=== PATIENT | female | born 1970 | race Caucasian/White ===

== ENCOUNTER 2020-10-03 06:12 | Emergency (ER) | payer OTHER ==
[~2020-10-03] VITALS: Ht 162.6 cm; Wt 109.1 kg
[~2020-10-03 06:12] MED LIST: LORA0.5T PO
[2020-10-03 06:20] VITALS: BP 172/103
[2020-10-03] MEDS ORDERED: dexamethasone sod phosphate 10mg/ml inj IV STA (06:32)
[2020-10-03] MEDS ORDERED: clindamycin 600mg/D5W 50ml 50 ML IV ONE (06:35)
[2020-10-03] MEDS ORDERED: LIDOcaine 4% (40 mg/ml) topical solution 50ml TP ONE (06:35)
[2020-10-03] MEDS ORDERED: COROTSUS RIGHT EAR (07:37)
[2020-10-03] MEDS ORDERED: CLIN150C2 PO (07:38)
== END 2020-10-03 08:25 | disposition home or self-care (01) ==
LOC: ER 06:13
DX: H60.11 Cellulitis of right external ear (principal); Z88.0 Allergy status to penicillin; Z79.899 Other long term (current) drug therapy
CPT/HCPCS: 96365; 96375; 99284; J1100; 96366; J3490

== ENCOUNTER 2021-07-05 14:48 | Emergency (ER) | payer OTHER ==
[~2021-07-05] VITALS: Ht 165.1 cm; Wt 100.0 kg
[~2021-07-05 14:48] MED LIST changes: +COROTSUS RIGHT EAR; +ONDA4TAB6 PO
[2021-07-05 16:33] LABS: BASOPHILS % (AUTO) 0.7 % (0-1); EOSINOPHILS # (AUTO) 0.2 X10'3 (0-0.9); EOSINOPHILS % (AUTO) 3.5 % (0-6); HEMOGLOBIN 14.4 g/dl (12.0-16.0); LYMPHOCYTES # (AUTO) 2.7 X10'3 (1.1-4.8); LYMPHOCYTES % (AUTO) 44.2 % (21-51); MEAN CORPUSCULAR HEMOGLOBIN 29.7 PG (27.0-31.0); MEAN CORPUSCULAR HGB CONC 33.5 g/dL (33.0-36.5); MEAN CORPUSCULAR VOLUME 88.7 FL (78-98); MEAN PLATELET VOLUME 8.3 FL (7.4-10.4); MONOCYTES # (AUTO) 0.4 X10'3 (0-0.9); NEUTROPHILS # (AUTO) 2.8 X10'3 (1.8-7.7); NEUTROPHILS % (AUTO) 44.6 % (42-75); PLATELET COUNT 311 X10'3 (140-440); RED BLOOD COUNT 4.85 X10'6 (4.20-5.60); RED CELL DISTRIBUTION WIDTH 12.6 % (11.5-14.5); WHITE BLOOD COUNT 6.2 X10'3 (4.5-11.0)
[2021-07-05 16:49] LABS: ALANINE AMINOTRANSFERASE 45 U/L (12-78); ALBUMIN 4.3 G/DL (3.4-5.0); ALBUMIN/GLOBULIN RATIO 1.2 (1.1-1.5); ALKALINE PHOSPHATASE 80 IU/L (46-116); ANION GAP 6 (8-16); ASPARTATE AMINO TRANSFERASE 24 U/L (10-37); BILIRUBIN,TOTAL 0.3 MG/DL (0.1-1.0); BLOOD UREA NITROGEN 15 MG/DL (7-18); BUN/CREATININE RATIO 20.8 (6.6-38.0); C-REACTIVE PROTEIN 0.19 MG/DL (0.0-0.5); CALCIUM 9.2 MG/DL (8.5-10.1); CHLORIDE 106 MMOL/L (99-107); CREATININE 0.72 MG/DL (0.40-0.90); GLUCOSE 111 MG/DL (70-104); POTASSIUM 3.9 MMOL/L (3.5-5.1); SODIUM 140 MMOL/L (135-145); TOTAL CARBON DIOXIDE 27.7 MMOL/L (24-32); TOTAL PROTEIN 7.8 G/DL (6.4-8.2); eGFR 85 ML/MIN
[2021-07-05] MEDS ORDERED: OXYC-658 PO (19:16)
[2021-07-05 19:22] VITALS: BP 136/76
== END 2021-07-05 19:24 | disposition home or self-care (01) ==
LOC: MERGE 14:48 → ER 14:48
DX: M25.561 Pain in right knee (principal); M25.562 Pain in left knee; R22.41 Localized swelling, mass and lump, right lower limb; G89.29 Other chronic pain; Z90.710 Acquired absence of both cervix and uterus; Z88.0 Allergy status to penicillin; Z88.8 Allergy status to other drugs, medicaments and biological substances; Z79.899 Other long term (current) drug therapy
CPT/HCPCS: 36415; 73564; 80053; 85025; 85651; 86140; 99284